=== PATIENT | male | born 1960 | race Caucasian/White ===

== ENCOUNTER → 2017-01-26 | Outpatient (CLI) | payer OTHER | LOC: FIMAGING 13:38 | PROVIDERS: ATTEND Orthopaedic Surgery | DX: Z01.818 Encounter for other preprocedural examination (principal); M16.12 Unilateral primary osteoarthritis, left hip ==

== ENCOUNTER 2017-02-02 06:23 | Inpatient (IN) | payer OTHER ==
[2017-02-02] MEDS ORDERED: LIDOCAINE 1% 5 ML SDV ID PRN (06:36)
[2017-02-02] MEDS ORDERED: LR 1,000 ML IV ONE (06:36)
[2017-02-02] MEDS ORDERED: LIDOCAINE 1% 2 ML INJ ONE (06:39)
[2017-02-02] MEDS ORDERED: TEMAZEPAM 15 MG CAP PO PRN (06:54)
[2017-02-02] MEDS ORDERED: ONDANSETRON DISINTEGRATING 4 MG TAB PO PRN (06:54)
[2017-02-02] MEDS ORDERED: MAGNESIUM HYDROXIDE 30 ML UDCUP PO PRN (06:54)
[2017-02-02] MEDS ORDERED: LACTULOSE 20 GM/30 ML UDCUP PO PRN (06:54)
[2017-02-02] MEDS ORDERED: PHARMACY PAIN CONSULT 1 EA MISC PRN (06:54)
[2017-02-02] MEDS ORDERED: diphenhydrAMINE 25 MG CAP PO PRN (06:54)
[2017-02-02] MEDS ORDERED: ONDANSETRON 4 MG/2 ML VIAL IVP PRN (06:54)
[2017-02-02] MEDS ORDERED: POLYETHYLENE GLYCOL 3350 17 GM PKT PO PRN (06:54)
[2017-02-02] MEDS ORDERED: traMADol 50 MG TAB PO PRN (06:54)
[2017-02-02] MEDS ORDERED: DIAZEPAM 5 MG TAB PO PRN (06:54)
[2017-02-02] MEDS ORDERED: DIPHENOXYLATE/ATROPINE LOMOTIL 1 TAB PO PRN (06:54)
[2017-02-02] MEDS ORDERED: BISACODYL 10 MG SUPP PR PRN (06:54)
[2017-02-02] MEDS ORDERED: PROMETHAZINE HCL 25 MG SUPPR PR PRN (06:54)
[2017-02-02] MEDS ORDERED: METOCLOPRAMIDE 10 MG/2 ML VIAL IVP PRN (06:54)
[2017-02-02] MEDS ORDERED: NON-FORMULARY NEW DRUG (Fluticasone Nasal [Flonase Nasal Spray] 1 SPRAYS) NASAL PRN (06:55)
--- NOTE | 2017-02-02 06:58 | PDIAF ---
- Diagnosis Diagnosis: left hip djd Code Status: Full Code - Medication Management Discharge Medications: Medications to Continue on Transfer Atorvastatin Calcium [Lipitor 40 mg (*)] 40 mg PO DAILY 01/13/17 [Last Taken 05:00] Fluticasone Nasal [Flonase Nasal [facility] (RX)] 1 sprays NASAL DAILY PRN 01/13/17 [ Last Taken 01/31/17] Montelukast Sodium [Singulair 10 mg (*)] 10 mg PO DAILY 01/13/17 [Last Taken 05:00] Discharge Medications: Refer to the Discharge Home Medication list for PRN reason. - Orders Services needed: Physical Therapy Diet Recommendation: no restrictions on diet Diet Texture: Regular Texture Diet Activity/Weight Bearing Restrictions: wbat. anterior hip precautions. daily dressing changes. may shower without bandage. no soaking or immersion. f/u at two weeks. seek attn for increasing redness, swelling, drainage, and discharge - Follow Up Care Current Providers and Referrals: José Alonso DO [Primary Care Provider] -
[2017-02-02] MEDS ORDERED: FAMOTIDINE 20 MG TAB PO ONE (07:00)
[2017-02-02] MEDS ORDERED: TRANEXAMIC ACID IV ONE (07:00)
[2017-02-02] MEDS ORDERED: CHLORHEXIDINE GLUC HIBICLENS 118 ML BTL TP ONE (07:00)
[2017-02-02] MEDS ORDERED: CEFAZOLIN 2 GM/DEXTR 100 ML IV ONE (07:00)
[2017-02-02] MEDS ORDERED: ROPI/epiNEPH/KETOROLAC/morphINE JOINT COCKTAIL IU ONE (07:00)
[2017-02-02] MEDS ORDERED: NS IV ONE (07:00)
[2017-02-02] MEDS ORDERED: ACETAMINOPHEN 325 MG TAB PO ONE (07:00)
[2017-02-02] MEDS ORDERED: fentaNYL 100 MCG/2 ML INJ ONE (08:08)
[2017-02-02] MEDS ORDERED: PROPOFOL/EMULSION 500 MG/50 ML BOTTLE IV ONE ×2 (08:08→09:01)
[2017-02-02] MEDS ORDERED: DEXAMETHASONE 4 MG/ML VIAL ONE ×2 (08:08)
[2017-02-02] MEDS ORDERED: LIDOCAINE 2% 100 MG/5 ML SYR ONE (08:09)
[2017-02-02] MEDS ORDERED: MIDAZOLAM 2 MG/2 ML VIAL ONE (08:11)
[2017-02-02] MEDS ORDERED: GLYCOPYRROLATE 0.2 MG/1 ML VIAL ONE (08:48)
[2017-02-02] MEDS ORDERED: FLUTICASONE NASAL 120 SPRAYS/16 GM MDI NS PRN (12:42)
[2017-02-02] MEDS: ACETAMINOPHEN 325 MG TAB PO SCH ×3 (12:56→23:23)
[2017-02-02] MEDS: oxyCODONE IR 5 MG TAB PO PRN ×3 (12:56→21:14)
[2017-02-02] MEDS: LR 1,000 ML IV SCH ×2 (12:57→21:51)
[2017-02-02] MEDS: SENNOSIDES/DOCUSATE SODIUM TAB PO SCH ×2 (13:50→21:14)
[2017-02-02] MEDS: MONTELUKAST SODIUM 10 MG TAB PO SCH (13:50)
[2017-02-02] MEDS: ATORVASTATIN CALCIUM 40 MG TAB PO SCH (13:50)
[2017-02-02] MEDS ORDERED: ceFAZolin 2 GM/DEXTROSE 100 ML IV SCH (14:00)
[2017-02-02] MEDS: ceFAZolin 2 GM/DEXTROSE 100 ML IV SCH ×2 (15:22→22:45)
[2017-02-02] MEDS: FAMOTIDINE 20 MG TAB PO SCH (21:14)
[2017-02-02] MEDS ORDERED: ASPIRIN EC 325 MG TAB PO ONE (21:47)
[2017-02-02] MEDS: ASPIRIN 325 MG TAB PO SCH (22:43)
[2017-02-03] MEDS: ACETAMINOPHEN 325 MG TAB PO SCH (04:56)
[2017-02-03] MEDS: oxyCODONE IR 5 MG TAB PO PRN ×2 (04:57→10:33)
[2017-02-03 05:01] LABS: HEMATOCRIT 36.4 % (40.0-51.0); HEMOGLOBIN 12.9 g/dL (13.7-17.5)
[2017-02-03] MEDS: LR 1,000 ML IV SCH (06:23)
[2017-02-03 08:38] VITALS: BP 127/95; PULSE 70; RESP 18; TEMP 98.3; O2SAT 90
[2017-02-03] MEDS: FAMOTIDINE 20 MG TAB PO SCH (08:43)
[2017-02-03] MEDS: ATORVASTATIN CALCIUM 40 MG TAB PO SCH (08:43)
[2017-02-03] MEDS: MONTELUKAST SODIUM 10 MG TAB PO SCH (08:43)
[2017-02-03] MEDS: SENNOSIDES/DOCUSATE SODIUM TAB PO SCH (08:43)
[2017-02-03] MEDS: ASPIRIN 325 MG TAB PO SCH (08:43)
--- NOTE | 2017-02-03 10:04 | GDS ---
[f rep st] DISCHARGE SUMMARY ADMISSION DIAGNOSIS: Left hip degenerative joint disease. DISCHARGE DIAGNOSIS: Left hip degenerative joint disease. PROCEDURE: Left total hip arthroplasty. HISTORY OF PRESENT ILLNESS: The patient is a 56-year-old gentleman with end-stage arthritis to his left hip. Clinical and radiographic features are consistent with this. He has failed all attempts at conservative management. I, therefore, recommended total hip replacement. HOSPITAL COURSE: The patient was admitted to the hospital floor after an uncomplicated total hip ar throplasty. He tolerated the procedure well. He had no complications. At the time of discharge, princess horton is tolerating an oral diet. His pain is well controlled on oral medicines. He is voiding and sto oling without difficulty. His calves are nontender. He has negative Homans bilaterally. X-ray is stable with no fracture lucency and concentric reduction. His incisions are clean, dry, and intact. DISCHARGE ACTIVITIES: Weightbearing as tolerated. Anterior hip precautions. Daily dressing change s. May shower without the bandage. No soaking or immersion. FOLLOWUP: 2 weeks. DISCHARGE MEDICATIONS: Oxycodone 5 mg 1-2 every 4 hours p.r.n. pain. Seek attention for increasing redness, swelling, drainage, or discharge. /[id number]/MODL
== END 2017-02-03 11:03 | disposition home health service (06) | DRG 470 ==
LOC: F3N 06:23
PROVIDERS: ADMIT Orthopaedic Surgery; ATTEND Orthopaedic Surgery
PROC: 0SRB04Z Replacement of Left Hip Joint with Ceramic on Polyethylene Synthetic Substitute, Open Approach (ICD-10-PCS; principal; 2017-02-02 08:15)
DX: M16.12 Unilateral primary osteoarthritis, left hip (principal); J45.909 Unspecified asthma, uncomplicated; G47.33 Obstructive sleep apnea (adult) (pediatric)
CPT/HCPCS: 97110-GP; 97116-GP; 97161-GP; 97165-GO; 97530-GP; J0171; J0690; J1100; J1885; J2001; J2250; J2704; J2795; J3010

== ENCOUNTER → 2017-03-25 | Outpatient (CLI) | payer OTHER | LOC: BMCIMAGING 08:44 | PROVIDERS: ATTEND Orthopaedic Surgery | DX: Z96.642 Presence of left artificial hip joint (principal) ==

== ENCOUNTER → 2017-05-06 | Outpatient (CLI) | payer OTHER | LOC: BMCIMAGING 08:37 | PROVIDERS: ATTEND Orthopaedic Surgery | DX: Z47.1 Aftercare following joint replacement surgery (principal); Z96.642 Presence of left artificial hip joint ==

== ENCOUNTER → 2018-03-03 | Outpatient (CLI) | payer OTHER | LOC: BMCIMAGING 15:21 | PROVIDERS: ATTEND Orthopaedic Surgery | DX: Z47.1 Aftercare following joint replacement surgery (principal); Z96.642 Presence of left artificial hip joint ==